=== PATIENT | male | born 1980 | race Caucasian/White ===

== ENCOUNTER 2017-06-06 10:04 | Emergency (ER) | payer MEDICARE, MEDICAID ==
[~2017-06-06] VITALS: Ht 170.2 cm; Wt 214.4 kg
[~2017-06-06 10:04] MED LIST: ALBU8HFA PO; AMLO10TA PO; CARV-50 PO; DICL100G15 TOP; DICY10CA88 PO; FAMO20TA8 PO; FURO-150 PO; GABA-532 PO; LOSA50TA3 PO; METF500T PO; PANT-47 PO
[2017-06-06 12:18] LABS: BASOPHILS % (AUTO) 0.4 % (0-1); EOSINOPHILS # (AUTO) 0.2 X10'3 (0-0.9); HEMATOCRIT 44.2 % (42.0-52.0); HEMOGLOBIN 14.5 g/dl (14.0-17.9); LYMPHOCYTES # (AUTO) 1.6 X10'3 (1.1-4.8); MEAN CORPUSCULAR HEMOGLOBIN 27.1 PG (27.0-31.0); MEAN CORPUSCULAR HGB CONC 32.8 % (33.0-36.5); MEAN CORPUSCULAR VOLUME 82.7 FL (78-98); MEAN PLATELET VOLUME 8.7 FL (7.4-10.4); MONOCYTES # (AUTO) 0.6 X10'3 (0-0.9); MONOCYTES % (AUTO) 7.4 % (2-12); NEUTROPHILS # (AUTO) 6.1 X10'3 (1.8-7.7); NEUTROPHILS % (AUTO) 71.2 % (42-75); PLATELET COUNT 241 X10'3 (140-440); RED BLOOD COUNT 5.35 X10'6 (4.70-6.10); RED CELL DISTRIBUTION WIDTH 14.4 % (11.5-14.5); WHITE BLOOD COUNT 8.5 X10'3 (4.5-11.0)
[2017-06-06 13:19] VITALS: BP 153/111
== END 2017-06-06 13:20 | disposition home or self-care (01) ==
LOC: ER 10:04
DX: M79.671 Pain in right foot (principal); I10 Essential (primary) hypertension; K21.9 Gastro-esophageal reflux disease without esophagitis; E11.9 Type 2 diabetes mellitus without complications; J45.909 Unspecified asthma, uncomplicated; Z88.2 Allergy status to sulfonamides; Z88.5 Allergy status to narcotic agent; Z79.84 Long term (current) use of oral hypoglycemic drugs
CPT/HCPCS: 36415; 73630; 83605; 84145; 85025; 99284; J7030

== ENCOUNTER 2017-11-02 10:39 | Emergency (ER) | payer MEDICARE, MEDICAID ==
[~2017-11-02] VITALS: Ht 182.9 cm; Wt 173.0 kg
[2017-11-02 10:48] VITALS: BP 143/97
[2017-11-02] MEDS ORDERED: IBUP-1984 PO (12:39)
== END 2017-11-02 13:02 | disposition home or self-care (01) ==
LOC: ER 10:39
DX: M25.512 Pain in left shoulder (principal); I10 Essential (primary) hypertension; J45.909 Unspecified asthma, uncomplicated; K21.9 Gastro-esophageal reflux disease without esophagitis; E11.9 Type 2 diabetes mellitus without complications; Z90.89 Acquired absence of other organs; Z88.2 Allergy status to sulfonamides; Z88.5 Allergy status to narcotic agent; Z79.899 Other long term (current) drug therapy; W01.0XXA Fall on same level from slipping, tripping and stumbling without subsequent striking against object, initial encounter; Y93.E1 Activity, personal bathing and showering; Y92.89 Other specified places as the place of occurrence of the external cause; Y99.9 Unspecified external cause status
CPT/HCPCS: 73030; 99284

== ENCOUNTER 2017-11-16 10:10 | Emergency (ER) | payer MEDICARE, MEDICAID ==
[~2017-11-16] VITALS: Ht 190.5 cm; Wt 225.0 kg
[~2017-11-16 10:10] MED LIST changes: +IBUP-1984 PO
[2017-11-16] MEDS ORDERED: furosemide 20MG tablet PO ONE (11:05)
[2017-11-16 11:30] LABS: BASOPHILS % (AUTO) 0.2 % (0-1); EOSINOPHILS # (AUTO) 0.1 X10'3 (0-0.9); EOSINOPHILS % (AUTO) 1.9 % (0-6); HEMATOCRIT 39.2 % (42.0-52.0); HEMOGLOBIN 12.5 g/dl (14.0-17.9); LYMPHOCYTES # (AUTO) 1.3 X10'3 (1.1-4.8); LYMPHOCYTES % (AUTO) 22.2 % (21-51); MEAN CORPUSCULAR HEMOGLOBIN 26.4 PG (27.0-31.0); MEAN CORPUSCULAR HGB CONC 31.8 % (33.0-36.5); MEAN PLATELET VOLUME 9.1 FL (7.4-10.4); MONOCYTES # (AUTO) 0.4 X10'3 (0-0.9); NEUTROPHILS # (AUTO) 4.2 X10'3 (1.8-7.7); NEUTROPHILS % (AUTO) 69.7 % (42-75); PLATELET COUNT 171 X10'3 (140-440); RED BLOOD COUNT 4.72 X10'6 (4.70-6.10); RED CELL DISTRIBUTION WIDTH 15.6 % (11.5-14.5)
[2017-11-16 11:46] LABS: ALANINE AMINOTRANSFERASE 27 U/L (12-78); ALBUMIN 2.7 G/DL (3.4-5.0); ALBUMIN/GLOBULIN RATIO 0.6 (1.1-1.5); ALKALINE PHOSPHATASE 101 IU/L (46-116); ANION GAP -1 (8-16); ASPARTATE AMINO TRANSFERASE 18 U/L (10-37); BILIRUBIN,TOTAL 0.2 MG/DL (0.1-1.0); BLOOD UREA NITROGEN 11 MG/DL (7-18); BUN/CREATININE RATIO 13.6 (5.4-32.0); CALCIUM 8.7 MG/DL (8.5-10.1); CHLORIDE 104 MMOL/L (99-107); CREATININE 0.81 MG/DL (0.60-1.10); GLUCOSE 133 MG/DL (70-104); POTASSIUM 4.5 MMOL/L (3.5-5.1); SODIUM 144 MMOL/L (135-145); TOTAL PROTEIN 6.9 G/DL (6.4-8.2); eGFR > 90 ML/MIN
[2017-11-16 11:52] LABS: TOTAL CARBON DIOXIDE 41.1 MMOL/L (24-32)
[2017-11-16] MEDS ORDERED: POTA20TA19 PO (12:03)
[2017-11-16] MEDS ORDERED: FURO40TA4 PO (12:03)
[2017-11-16 13:39] VITALS: BP 139/75
== END 2017-11-16 13:41 | disposition home or self-care (01) ==
LOC: ER 10:10
DX: R60.0 Localized edema (principal); I10 Essential (primary) hypertension; J45.909 Unspecified asthma, uncomplicated; K21.9 Gastro-esophageal reflux disease without esophagitis; E11.9 Type 2 diabetes mellitus without complications; Z87.891 Personal history of nicotine dependence; Z90.89 Acquired absence of other organs; Z88.2 Allergy status to sulfonamides; Z88.5 Allergy status to narcotic agent; Z79.899 Other long term (current) drug therapy
CPT/HCPCS: 36415; 80053; 85025; 99284

== ENCOUNTER 2017-12-07 10:16 | Emergency (ER) | payer MEDICARE, MEDICAID ==
[~2017-12-07] VITALS: Ht 190.5 cm; Wt 250.0 kg
[~2017-12-07 10:16] MED LIST changes: +FURO40TA4 PO; -IBUP-1984 PO; +POTA20TA19 PO
[2017-12-07 11:41] LABS: BASOPHILS % (AUTO) 0.2 % (0-1); EOSINOPHILS # (AUTO) 0.1 X10'3 (0-0.9); EOSINOPHILS % (AUTO) 1.8 % (0-6); HEMATOCRIT 37.4 % (42.0-52.0); HEMOGLOBIN 11.8 g/dl (14.0-17.9); LYMPHOCYTES # (AUTO) 1.2 X10'3 (1.1-4.8); LYMPHOCYTES % (AUTO) 17.7 % (21-51); MEAN CORPUSCULAR HEMOGLOBIN 26.2 PG (27.0-31.0); MEAN CORPUSCULAR HGB CONC 31.6 % (33.0-36.5); MEAN CORPUSCULAR VOLUME 82.9 FL (78-98); MEAN PLATELET VOLUME 8.6 FL (7.4-10.4); MONOCYTES # (AUTO) 0.6 X10'3 (0-0.9); MONOCYTES % (AUTO) 8.7 % (2-12); NEUTROPHILS # (AUTO) 4.9 X10'3 (1.8-7.7); NEUTROPHILS % (AUTO) 71.6 % (42-75); PLATELET COUNT 215 X10'3 (140-440); RED BLOOD COUNT 4.51 X10'6 (4.70-6.10); RED CELL DISTRIBUTION WIDTH 15.7 % (11.5-14.5); WHITE BLOOD COUNT 6.8 X10'3 (4.5-11.0)
[2017-12-07 11:55] LABS: ALANINE AMINOTRANSFERASE 31 U/L (12-78); ALBUMIN 2.8 G/DL (3.4-5.0); ALBUMIN/GLOBULIN RATIO 0.7 (1.1-1.5); ALKALINE PHOSPHATASE 86 IU/L (46-116); ANION GAP 0 (8-16); ASPARTATE AMINO TRANSFERASE 19 U/L (10-37); BILIRUBIN,TOTAL 0.2 MG/DL (0.1-1.0); BLOOD UREA NITROGEN 10 MG/DL (7-18); CHLORIDE 103 MMOL/L (99-107); CREATININE 0.91 MG/DL (0.60-1.10); GLUCOSE 83 MG/DL (70-104); MAGNESIUM 1.9 MG/DL (1.5-2.4); POTASSIUM 4.1 MMOL/L (3.5-5.1); SODIUM 146 MMOL/L (135-145); TOTAL PROTEIN 6.8 G/DL (6.4-8.2); eGFR > 90 ML/MIN
[2017-12-07 12:07] LABS: TOTAL CARBON DIOXIDE 42.9 MMOL/L (24-32)
[2017-12-07 13:20] VITALS: BP 132/69
== END 2017-12-07 13:21 | disposition home or self-care (01) ==
LOC: ER 10:16
DX: J96.10 Chronic respiratory failure, unspecified whether with hypoxia or hypercapnia (principal); I10 Essential (primary) hypertension; K21.9 Gastro-esophageal reflux disease without esophagitis; J45.909 Unspecified asthma, uncomplicated; Z88.2 Allergy status to sulfonamides; Z88.5 Allergy status to narcotic agent; Z79.84 Long term (current) use of oral hypoglycemic drugs; Z79.899 Other long term (current) drug therapy
CPT/HCPCS: 36415; 71045; 80053; 83735; 84484; 85025; 93005; 99285

== ENCOUNTER 2017-12-09 12:25 | Emergency (ER) | payer MEDICARE, MEDICAID ==
[~2017-12-09] VITALS: Ht 190.5 cm; Wt 250.0 kg
[2017-12-09 12:36] VITALS: BP 140/85
[2017-12-09] MEDS ORDERED: METF500T PO (12:39)
== END 2017-12-09 12:50 | disposition home or self-care (01) ==
LOC: ER 12:26
DX: I10 Essential (primary) hypertension (principal); E11.65 Type 2 diabetes mellitus with hyperglycemia; J45.909 Unspecified asthma, uncomplicated; K21.9 Gastro-esophageal reflux disease without esophagitis; Z88.2 Allergy status to sulfonamides; Z88.5 Allergy status to narcotic agent; Z79.84 Long term (current) use of oral hypoglycemic drugs; Z79.899 Other long term (current) drug therapy
CPT/HCPCS: 82948; 99284

== ENCOUNTER 2018-01-08 09:38 | Emergency (ER) | payer MEDICARE, MEDICAID ==
[~2018-01-08] VITALS: Ht 190.5 cm; Wt 223.0 kg
[~2018-01-08 09:38] MED LIST changes: -POTA20TA19 PO
[2018-01-08] MEDS ORDERED: MYC15CR TOP (09:56)
[2018-01-08 10:11] VITALS: BP 118/93
== END 2018-01-08 11:15 | disposition home or self-care (01) ==
LOC: ER 09:39
DX: R21 Rash and other nonspecific skin eruption (principal); I10 Essential (primary) hypertension; J45.909 Unspecified asthma, uncomplicated; G47.30 Sleep apnea, unspecified; K21.9 Gastro-esophageal reflux disease without esophagitis; E11.9 Type 2 diabetes mellitus without complications; Z90.89 Acquired absence of other organs; Z88.2 Allergy status to sulfonamides; Z88.6 Allergy status to analgesic agent; Z79.899 Other long term (current) drug therapy
CPT/HCPCS: 99283

== ENCOUNTER 2018-01-23 08:18 | Emergency (ER) | payer MEDICARE, MEDICAID ==
[~2018-01-23] VITALS: Ht 190.5 cm; Wt 231.8 kg
[~2018-01-23 08:18] MED LIST changes: +MYC15CR TOP
[2018-01-23 08:55] LABS: BASOPHILS % (AUTO) 0 % (0-1); EOSINOPHILS # (AUTO) 0.1 X10'3 (0-0.9); HEMATOCRIT 40.3 % (42.0-52.0); HEMOGLOBIN 12.3 g/dl (14.0-17.9); LYMPHOCYTES # (AUTO) 0.8 X10'3 (1.1-4.8); LYMPHOCYTES % (AUTO) 12.5 % (21-51); MEAN CORPUSCULAR HEMOGLOBIN 23.8 PG (27.0-31.0); MEAN CORPUSCULAR HGB CONC 30.4 % (33.0-36.5); MEAN CORPUSCULAR VOLUME 78.4 FL (78-98); MEAN PLATELET VOLUME 9.7 FL (7.4-10.4); MONOCYTES # (AUTO) 0.3 X10'3 (0-0.9); MONOCYTES % (AUTO) 5.1 % (2-12); NEUTROPHILS # (AUTO) 4.8 X10'3 (1.8-7.7); NEUTROPHILS % (AUTO) 80.4 % (42-75); PLATELET COUNT 187 X10'3 (140-440); RED BLOOD COUNT 5.14 X10'6 (4.70-6.10); RED CELL DISTRIBUTION WIDTH 18.1 % (11.5-14.5)
[2018-01-23 09:14] LABS: ALANINE AMINOTRANSFERASE 33 U/L (12-78); ALBUMIN 2.9 G/DL (3.4-5.0); ALBUMIN/GLOBULIN RATIO 0.7 (1.1-1.5); ALKALINE PHOSPHATASE 97 IU/L (46-116); ANION GAP 4 (8-16); ASPARTATE AMINO TRANSFERASE 24 U/L (10-37); BILIRUBIN,TOTAL 0.3 MG/DL (0.1-1.0); BLOOD UREA NITROGEN 12 MG/DL (7-18); BUN/CREATININE RATIO 12.5 (5.4-32.0); CALCIUM 7.9 MG/DL (8.5-10.1); CHLORIDE 101 MMOL/L (99-107); CREATININE 0.96 MG/DL (0.60-1.10); GLUCOSE 125 MG/DL (70-104); LIPASE 78 U/L (73-393); POTASSIUM 4.6 MMOL/L (3.5-5.1); SODIUM 140 MMOL/L (135-145); TOTAL CARBON DIOXIDE 34.7 MMOL/L (24-32); TOTAL PROTEIN 7.3 G/DL (6.4-8.2); eGFR 89 ML/MIN
[2018-01-23 09:29] LABS: ANISOCYTOSIS 2+; LARGE PLATELETS FEW; PLATELET ESTIMATE NORMAL
[2018-01-23 09:30] LABS: HYPOCHROMASIA 1+; POLYCHROMASIA 1+
[2018-01-23 10:10] LABS: CLARITY,URINE SLIGHTLY CLOUDY (Clear); COLOR,URINE YELLOW (Yellow); GLUCOSE, URINE NEGATIVE (Neg); KETONES,URINE NEGATIVE (Neg); LEUKOCYTE ESTERASE ,URINE SMALL (Neg); NITRITES, URINE NEGATIVE (Neg); OCCULT BLOOD,URINE TRACE-LYSED (Neg); PH,URINE 5.5 (4.8-8.0); PROTEIN,URINE NEGATIVE (Neg); UROBILINOGEN,URINE 0.2 E.U/dL (0.2-1.0)
[2018-01-23 10:17] LABS: UA COLLECTION TYPE URINAL
[2018-01-23 10:18] LABS: BACTERIA,URINE 2+ /HPF (Neg); RBC,URINE 0-2 /HPF (0-2); SQUAMOUS EPITHELIAL CELL,UR FEW /LPF (FEW); WBC CLUMPS,URINE MODERATE /HPF (NEGATIVE)
[2018-01-23 10:34] VITALS: BP 137/79
[2018-01-23] MEDS ORDERED: NITR100C6 PO (10:37)
[2018-01-23] MEDS ORDERED: nitrofuran/nitrofuran macrocrysal 100 MG capsule PO ONE (10:40)
== END 2018-01-23 11:43 | disposition home or self-care (01) ==
LOC: ER 08:19
DX: N39.0 Urinary tract infection, site not specified (principal); R10.84 Generalized abdominal pain; I10 Essential (primary) hypertension; J45.909 Unspecified asthma, uncomplicated; K21.9 Gastro-esophageal reflux disease without esophagitis; E11.9 Type 2 diabetes mellitus without complications; Z87.891 Personal history of nicotine dependence; Z90.89 Acquired absence of other organs; Z88.2 Allergy status to sulfonamides; Z88.5 Allergy status to narcotic agent; Z79.899 Other long term (current) drug therapy
CPT/HCPCS: 36415; 71045; 80053; 81001; 83690; 85025; 87088; 99284

== ENCOUNTER 2018-01-28 16:23 | Emergency (ER) | payer MEDICARE, MEDICAID ==
[~2018-01-28] VITALS: Ht 190.5 cm; Wt 234.1 kg
[~2018-01-28 16:23] MED LIST changes: +NITR100C6 PO
[2018-01-28 17:57] LABS: CLARITY,URINE SLIGHTLY CLOUDY (Clear); COLOR,URINE AMBER (Yellow); GLUCOSE, URINE NEGATIVE (Neg); KETONES,URINE NEGATIVE (Neg); LEUKOCYTE ESTERASE ,URINE NEGATIVE (Neg); NITRITES, URINE NEGATIVE (Neg); OCCULT BLOOD,URINE NEGATIVE (Neg); PROTEIN,URINE NEGATIVE (Neg)
[2018-01-28 17:58] LABS: UA COLLECTION TYPE CLN CATCH MIDSTREAM
[2018-01-28 18:06] LABS: HYALINE CASTS 0-3 /LPF (NEGATIVE); SQUAMOUS EPITHELIAL CELL,UR MANY /LPF (FEW)
[2018-01-28 18:07] LABS: BACTERIA,URINE FEW /HPF (Neg); MUCUS STRANDS NONE SEEN /LPF (Neg); RBC,URINE NONE SEEN /HPF (0-2); WBC,URINE 0-4 /HPF (0-4)
[2018-01-28] MEDS ORDERED: levoFLOXACIN 750MG TABLET PO ONE (18:40)
[2018-01-28] MEDS ORDERED: LEVO750T21 PO (18:42)
[2018-01-28 18:57] VITALS: BP 133/81
== END 2018-01-28 18:58 | disposition home or self-care (01) ==
LOC: ER 16:24
DX: N39.0 Urinary tract infection, site not specified (principal); I10 Essential (primary) hypertension; J45.909 Unspecified asthma, uncomplicated; K21.9 Gastro-esophageal reflux disease without esophagitis; E11.9 Type 2 diabetes mellitus without complications; Z98.890 Other specified postprocedural states; Z88.2 Allergy status to sulfonamides; Z88.5 Allergy status to narcotic agent; Z79.899 Other long term (current) drug therapy
CPT/HCPCS: 81001; 99283

== ENCOUNTER 2018-03-10 11:12 | Emergency (ER) | payer MEDICARE, MEDICAID ==
[~2018-03-10] VITALS: Ht 190.5 cm; Wt 243.2 kg
[2018-03-10 11:25] VITALS: BP 122/89
[2018-03-10] MEDS ORDERED: oseltamivir phos 75mg capsule PO ONE (12:25)
[2018-03-10] MEDS ORDERED: azithromycin 250mg tablet PO ONE (12:25)
[2018-03-10] MEDS ORDERED: AZIT-63 PO (12:55)
[2018-03-10] MEDS ORDERED: TAM75C PO (12:55)
== END 2018-03-10 13:11 | disposition home or self-care (01) ==
LOC: ER 11:13
DX: J20.9 Acute bronchitis, unspecified (principal); J11.1 Influenza due to unidentified influenza virus with other respiratory manifestations; I10 Essential (primary) hypertension; J45.909 Unspecified asthma, uncomplicated; K21.9 Gastro-esophageal reflux disease without esophagitis; E11.9 Type 2 diabetes mellitus without complications; Z98.890 Other specified postprocedural states; Z88.2 Allergy status to sulfonamides; Z88.5 Allergy status to narcotic agent; Z79.2 Long term (current) use of antibiotics; Z79.899 Other long term (current) drug therapy
CPT/HCPCS: 71046; 82948; 99283

== ENCOUNTER 2018-08-12 12:39 | Emergency (ER) | payer MEDICAID ==
[~2018-08-12] VITALS: Ht 190.5 cm; Wt 235.9 kg
[2018-08-12 13:02] VITALS: BP 131/85
[2018-08-12 13:35] LABS: BASOPHILS % (AUTO) 0.1 % (0-1); EOSINOPHILS # (AUTO) 0.1 X10'3 (0-0.9); EOSINOPHILS % (AUTO) 1.3 % (0-6); HEMATOCRIT 42.8 % (42.0-52.0); HEMOGLOBIN 13.7 g/dl (14.0-17.9); LYMPHOCYTES # (AUTO) 1.1 X10'3 (1.1-4.8); LYMPHOCYTES % (AUTO) 10.5 % (21-51); MEAN CORPUSCULAR HEMOGLOBIN 25.8 PG (27.0-31.0); MEAN CORPUSCULAR HGB CONC 31.9 g/dL (33.0-36.5); MEAN CORPUSCULAR VOLUME 80.8 FL (78-98); MEAN PLATELET VOLUME 8.9 FL (7.4-10.4); MONOCYTES # (AUTO) 0.4 X10'3 (0-0.9); MONOCYTES % (AUTO) 3.9 % (2-12); NEUTROPHILS % (AUTO) 84.2 % (42-75); PLATELET COUNT 217 X10'3 (140-440); RED CELL DISTRIBUTION WIDTH 17.2 % (11.5-14.5); WHITE BLOOD COUNT 10.6 X10'3 (4.5-11.0)
[2018-08-12 13:49] LABS: ALANINE AMINOTRANSFERASE 37 U/L (12-78); ALBUMIN 3.2 G/DL (3.4-5.0); ALBUMIN/GLOBULIN RATIO 0.6 (1.1-1.5); ALKALINE PHOSPHATASE 124 IU/L (46-116); AMYLASE 35 U/L (25-115); ANION GAP 2 (8-16); ASPARTATE AMINO TRANSFERASE 21 U/L (10-37); BILIRUBIN,TOTAL 0.2 MG/DL (0.1-1.0); BLOOD UREA NITROGEN 16 MG/DL (7-18); BUN/CREATININE RATIO 16.8 (5.4-32.0); CALCIUM 9.3 MG/DL (8.5-10.1); CHLORIDE 104 MMOL/L (99-107); CREATININE 0.95 MG/DL (0.60-1.10); GLUCOSE 159 MG/DL (70-104); LIPASE 91 U/L (73-393); SODIUM 141 MMOL/L (135-145); TOTAL CARBON DIOXIDE 35.4 MMOL/L (24-32); TOTAL PROTEIN 8.2 G/DL (6.4-8.2); eGFR 90 ML/MIN
[2018-08-12 16:13] LABS: CLARITY,URINE SLIGHTLY CLOUDY (Clear); COLOR,URINE YELLOW (Yellow); GLUCOSE, URINE 100 mg/dl (Neg); KETONES,URINE NEGATIVE (Neg); LEUKOCYTE ESTERASE ,URINE NEGATIVE (Neg); NITRITES, URINE NEGATIVE (Neg); OCCULT BLOOD,URINE TRACE-LYSED (Neg); PH,URINE 5.5 (4.8-8.0); PROTEIN,URINE 30 mg/dl (Neg)
[2018-08-12 16:14] LABS: UA COLLECTION TYPE VOIDED
[2018-08-12 16:26] LABS: BACTERIA,URINE NONE SEEN /HPF (Neg); MUCUS STRANDS NONE SEEN /LPF (Neg); RBC,URINE NONE SEEN /HPF (0-2); SQUAMOUS EPITHELIAL CELL,UR FEW /LPF (FEW); WBC,URINE 0-4 /HPF (0-4)
[2018-08-12 16:27] LABS: HYALINE CASTS 0-3 /LPF (NEGATIVE)
== END 2018-08-12 16:02 | disposition home or self-care (01) ==
LOC: ER 12:40
DX: K59.00 Constipation, unspecified (principal); R10.31 Right lower quadrant pain; R10.32 Left lower quadrant pain; D64.9 Anemia, unspecified; I10 Essential (primary) hypertension; J45.909 Unspecified asthma, uncomplicated; K21.9 Gastro-esophageal reflux disease without esophagitis; E11.9 Type 2 diabetes mellitus without complications; Z90.89 Acquired absence of other organs; Z88.2 Allergy status to sulfonamides; Z88.5 Allergy status to narcotic agent; Z79.84 Long term (current) use of oral hypoglycemic drugs; Z79.899 Other long term (current) drug therapy
CPT/HCPCS: 36415; 80053; 81001; 82150; 83690; 85025; 85610; 99283

== ENCOUNTER 2018-09-19 11:50 | Emergency (ER) | payer MEDICARE, MEDICAID ==
[~2018-09-19] VITALS: Ht 190.5 cm; Wt 231.8 kg
[2018-09-19 12:35] LABS: EOSINOPHILS # (AUTO) 0.1 X10'3 (0-0.9); HEMOGLOBIN 12.8 g/dl (14.0-17.9); LYMPHOCYTES # (AUTO) 1.3 X10'3 (1.1-4.8); MEAN CORPUSCULAR HEMOGLOBIN 25.1 PG (27.0-31.0); MEAN CORPUSCULAR HGB CONC 30.1 g/dL (33.0-36.5); MONOCYTES # (AUTO) 0.5 X10'3 (0-0.9); NEUTROPHILS # (AUTO) 6.4 X10'3 (1.8-7.7); WHITE BLOOD COUNT 8.3 X10'3 (4.5-11.0)
[2018-09-19 12:44] LABS: BASOPHILS % (AUTO) 0.2 % (0-1); EOSINOPHILS % (AUTO) 1.5 % (0-6); HEMATOCRIT 42.4 % (42.0-52.0); LYMPHOCYTES % (AUTO) 15.4 % (21-51); MEAN CORPUSCULAR VOLUME 83.5 FL (78-98); MONOCYTES % (AUTO) 5.7 % (2-12); NEUTROPHILS % (AUTO) 77.2 % (42-75); PLATELET COUNT 200 X10'3 (140-440); RED BLOOD COUNT 5.07 X10'6 (4.70-6.10); RED CELL DISTRIBUTION WIDTH 17.3 % (11.5-14.5)
[2018-09-19 13:05] LABS: ALANINE AMINOTRANSFERASE 31 U/L (12-78); ALBUMIN 3.1 G/DL (3.4-5.0); ALBUMIN/GLOBULIN RATIO 0.7 (1.1-1.5); ALKALINE PHOSPHATASE 113 IU/L (46-116); ANION GAP 4 (8-16); ASPARTATE AMINO TRANSFERASE 16 U/L (10-37); BILIRUBIN,TOTAL 0.2 MG/DL (0.1-1.0); BLOOD UREA NITROGEN 16 MG/DL (7-18); CALCIUM 8.3 MG/DL (8.5-10.1); CHLORIDE 104 MMOL/L (99-107); CREATININE 0.94 MG/DL (0.60-1.10); GLUCOSE 151 MG/DL (70-104); POTASSIUM 3.7 MMOL/L (3.5-5.1); SODIUM 142 MMOL/L (135-145); TOTAL CARBON DIOXIDE 34.2 MMOL/L (24-32); TOTAL PROTEIN 7.8 G/DL (6.4-8.2); eGFR > 90 ML/MIN
[2018-09-19 13:06] LABS: PARTIAL THROMBOPLASTIN TIME 29 SECONDS (22-32)
[2018-09-19 13:27] LABS: PLATELET ESTIMATE NORMAL
[2018-09-19 13:29] LABS: POLYCHROMASIA FEW; SPHEROCYTES FEW; STOMATOCYTES FEW
--- NOTE | 2018-09-19 14:31 | NUR ---
PT BEGAN YELLING IN THE LOBBY. SAT WAS CHECKED, PT'S OXYGEN BOTTLE HAD RUN OUT. SAT WAS 63%, HR 98. OXYGEN BOTTLE REPLACED, PT WAS ON 6 LPM. NURSE STAYED WITH PT UNTIL SAT OVER 91%. NO BED AVAILABLE AT THIS TIME, CHG RN WAS NOTIFIED.
--- NOTE | 2018-09-19 15:55 | NUR ---
Pt C/O hip pain and requesting tylenol, MD [place] updated on pt request received VO for tylenol 650mg PO x 1 now.
[2018-09-19] MEDS ORDERED: acetaminophen 325mg tablet PO ONE (16:05)
[2018-09-19 16:21] VITALS: BP 107/66
== END 2018-09-19 16:38 | disposition home or self-care (01) ==
LOC: ER 11:52
DX: R06.02 Shortness of breath (principal); I10 Essential (primary) hypertension; J45.909 Unspecified asthma, uncomplicated; G47.30 Sleep apnea, unspecified; K21.9 Gastro-esophageal reflux disease without esophagitis; E11.9 Type 2 diabetes mellitus without complications; F31.9 Bipolar disorder, unspecified; Z98.890 Other specified postprocedural states; Z88.2 Allergy status to sulfonamides; Z88.5 Allergy status to narcotic agent; Z79.84 Long term (current) use of oral hypoglycemic drugs; Z79.899 Other long term (current) drug therapy
CPT/HCPCS: 36415; 71045; 80053; 83880; 84484; 85025; 85610; 85730; 93005; 99284